=== PATIENT | female | born 1995 | race Caucasian/White ===

== ENCOUNTER 2018-08-17 22:01 | Inpatient (IN) | payer BC ==
[~2018-08-17] VITALS: Ht 167.6 cm; Wt 74.8 kg
[2018-08-17 22:21] VITALS: BP 132/81
--- NOTE | 2018-08-17 22:23 | NUR ---
PT RETURNED TO LOBBY
--- NOTE | 2018-08-17 22:48 | NUR ---
PATIENT AMBULATED TO BED 9
--- NOTE | 2018-08-17 22:59 | NUR ---
PT PRESENTS TO ED WITH C/O GNERLIZED ABDOMINAL PAIN WITH SUDDEN ONSET X 5 HRS. PT DENIES N/V/D AT THIS TIME. PT DENIES PAIN AT PALAPTION. BOWEL SOUNDS ACTIVE TO 4 QUADRANTS. ABD IS SOFT, NO TENDERNESS. PT PLACED INTO BED, THERESA ARMAS. PMH--DENIES
[2018-08-17] MEDS ORDERED: NACL 0.9% 1,000 ML IV SCH (23:22)
[2018-08-17] MEDS ORDERED: MORPHINE SULFATE 4 MG/ML SYR IVP ONE (23:25)
[2018-08-17] MEDS ORDERED: ONDANSETRON 4 MG/2 ML VIAL IVP ONE (23:25)
[2018-08-17] MEDS ORDERED: FAMOTIDINE 20 MG/2 ML VIAL IVP ONE (23:25)
--- NOTE | 2018-08-17 23:33 | NUR ---
PHLEB at bedside for blood draw.
[2018-08-17 23:44] LABS: BASOPHILS % (AUTO) 0.3 % (0.0-2.0); EOSINOPHILS # (AUTO) 0.1 K/uL (0-0.4); EOSINOPHILS % (AUTO) 1.1 % (0.0-4.0); HEMATOCRIT 37.8 % (36-48); HEMOGLOBIN 12.2 g/dL (12.0-16.0); LYMPHOCYTES # (AUTO) 1.8 K/uL (2.5-16.5); LYMPHOCYTES % (AUTO) 15.8 % (20.5-51.1); MEAN CORPUSCULAR HEMOGLOBIN 28 pg (27-31); MEAN CORPUSCULAR HGB CONC 32 g/dL (33-37); MEAN CORPUSCULAR VOLUME 87.5 fL (80-94); MONOCYTES # (AUTO) 0.7 K/uL (0.8-1.0); MONOCYTES % (AUTO) 6.4 % (1.7-9.3); NEUTROPHILS # (AUTO) 8.7 K/uL (1.8-7.7); NEUTROPHILS % (AUTO) 76.4 % (42.2-75.2); PLATELET COUNT (AUTO) 201 K/uL (140-450); RED BLOOD CELL COUNT(AUTO) 4.33 MIL/uL (4.20-5.40); RED CELL DISTRIBUTION WIDTH 13.4 % (11.6-13.7); WHITE BLOOD COUNT (AUTO) 11.4 K/uL (4.8-10.8)
--- NOTE | 2018-08-17 23:56 | NUR ---
Patient taken to CT scan via wheelchair by tech.
[2018-08-17 23:59] LABS: ANION GAP 8.9 (8-16); CARBON DIOXIDE 28.9 mmol/L (21-32); CREATININE 0.6 mg/dL (0.6-1.3); POTASSIUM 3.8 mmol/L (3.5-5.1); TOTAL BILIRUBIN 0.3 mg/dL (0.0-1.0)
[2018-08-18] LABS: ALBUMIN 3.9 g/dL (3.4-5.0)
[2018-08-18 00:02] LABS: APPEARANCE,URINE CLEAR (CLEAR); BILIRUBIN,URINE NEGATIVE (NEGATIVE); BLOOD, URINE NEGATIVE (NEGATIVE); COLOR,URINE YELLOW (YELLOW); LEUKOCYTE ESTERASE ,URINE NEGATIVE (NEGATIVE); NITRITE, URINE NEGATIVE (NEGATIVE); PH,URINE 6.5 (5.0-9.0); UGLUCOSE NEGATIVE (NEGATIVE)
[2018-08-18 00:18] LABS: RBC,URINE 0-5 (RARE) /HPF (0-5); WBC,URINE 0-5 (RARE) /HPF (0-5)
--- NOTE | 2018-08-18 00:59 | NUR ---
Dr. Hernández re-evaluating patient at bedside.
[2018-08-18] MEDS ORDERED: metroNIDAZOLE 500 MG/NS PREMIX 100 ML IV ONE (01:05)
[2018-08-18] MEDS ORDERED: PIPERACILLIN/TAZOBACTAM 3.375 GM in DEXTROSE 5% 50 ML IV ONE (01:05)
[2018-08-18] MEDS ORDERED: PIPERACILLIN/TAZOBACTAM 3.375 GM VIAL IV ONE (01:16)
--- NOTE | 2018-08-18 01:39 | NUR ---
PT AMBULATED TO RESTROOM W OUT ASSIST.
--- NOTE | 2018-08-18 02:06 | NUR ---
Pt transferred to Med/Surg 119B via BED WITH RN JACQUELYN.
[2018-08-18 02:10] VITALS: BP 125/73
--- NOTE | 2018-08-18 02:15 | NUR ---
RECEIVED REPORT FROM BELT LOOP MACHINE OPERATOR JACQUELYN. PT IS A&OX4. RESPIRATIONS ARE EQUAL AND UNLABORED. SKIN IS INTACT. C/C ABD PAIN. PT WITH IV ON R HAND 22G INFUSING FLAGY. VITAL SIGNS ARE WITHIN NORMAL LIMITS EXCEPT SLIGHT TACHYCARDIA. LABS NORMAL EXCEPT WBC ELEVATED. PLAN OF CARE DISCUSSED. WILL FOLLOW UP ANY NEW ORDERS. CALL LIGHT WITHIN REACH.
--- NOTE | 2018-08-18 02:17 | NUR ---
Patient will be admitted to care of . Admited to MED SURG. Will go to room 119-B. Belongings list completed. Report to ARMANI DAY.
[2018-08-18] MEDS ORDERED: MORPHINE SULFATE 4 MG/ML SYR IVP PRN (02:50)
[2018-08-18] MEDS: LACTATED RINGERS 1,000 ML IV SCH ×2 (03:11→17:52)
--- NOTE | 2018-08-18 03:11 | NUR ---
BAG OF IVF NOW INFUSING PER ORDERS. NO S/S OF DISTRESS. CALL LIGHT WITHIN REACH.
[2018-08-18 03:40] VITALS: BP 106/61
--- NOTE | 2018-08-18 05:07 | NUR ---
PT SLEEPING COMFORTABLY IN BED. RESPIRATIONS ARE EQUAL AND UNLABORED. CALL LIGHT WITHIN REACH.
--- NOTE | 2018-08-18 07:25 | NUR ---
RECEIVED REPORT FROM GUEST ROOM ATTENDANT NURSE. PT IS A&OX4. RESPIRATIONS ARE EQUAL AND UNLABORED. SKIN IS INTACT. C/C ABD PAIN. POSSIBLE APPENDECTOMY TODAY. PT WITH IV ON R HAND 22G INFUSING LR AT 80ML/HR. VITAL SIGNS ARE WITHIN NORMAL LIMITS. LABS NORMAL EXCEPT WBC ELEVATED. PLAN OF CARE DISCUSSED. WILL FOLLOW UP ANY NEW ORDERS. CALL LIGHT WITHIN REACH. BED IN LOW POSITION.
--- NOTE | 2018-08-18 07:27 | NUR ---
GAVE BEDSIDE REPORT. PT IS IN STABLE CONDITION.
[2018-08-18 08:00] VITALS: BP 106/59
[2018-08-18] MEDS: PIPER/TAZO 3.375GM/D5W PREMIX 50 ML IV SCH ×3 (12:13→23:57)
--- NOTE | 2018-08-18 12:42 | NUR ---
PT TAKEN TO OR FOR APPENDECTOMY. PT IN STABLE CONDITION AT THIS TIME.
[2018-08-18] MEDS ORDERED: BUPIVACAINE-MPF/EPI 0.25% 30 ML VIAL INJ ONE (12:43)
[2018-08-18] MEDS ORDERED: HYDROmorphone PFS 2 MG/ML SYR ONE ×2 (12:46→14:06)
[2018-08-18] MEDS ORDERED: fentaNYL 0.05 MG/ML VIAL ONE (12:46)
[2018-08-18] MEDS ORDERED: DESFLURANE 240 ML BTL INH ONE (13:02)
[2018-08-18] MEDS ORDERED: SUCCINYLCHOLINE CHLORIDE 200 MG/10 ML VIAL IVP ONE (13:02)
[2018-08-18] MEDS ORDERED: NEOSTIGMINE 1:1000 10 MG/10 ML VIAL ONE (13:02)
[2018-08-18] MEDS ORDERED: ROCURONIUM 50 MG/5 ML VIAL IV ONE (13:02)
[2018-08-18] MEDS ORDERED: GLYCOPYRROLATE 0.2 MG/ML VIAL ONE (13:02)
[2018-08-18] MEDS ORDERED: PROPOFOL 200 MG/20 ML VIAL IV ONE (13:02)
[2018-08-18] MEDS ORDERED: ONDANSETRON 4 MG/2 ML VIAL ONE (13:02)
[2018-08-18] MEDS ORDERED: KETOROLAC 30 MG/ML VIAL ONE (13:02)
[2018-08-18] MEDS ORDERED: DEXAMETHASONE 10 MG/ML VIAL ONE (13:02)
[2018-08-18] MEDS ORDERED: ONDANSETRON 4 MG/2 ML VIAL IVP PRN ×2 (13:20→23:35)
--- NOTE | 2018-08-18 13:44 | NUR ---
PATIENT HAS BEEN SCREENED AND CATEGORIZED LOW NUTRITION RISK. PATIENT WILL BE SEEN WITHIN 7 DAYS OF ADMISSION. 08/25/18 SILVA GARDUNO MBA, RD
[2018-08-18] MEDS: HYDROmorphone 1 MG/ML AMP IVP PRN ×4 (13:55→14:20)
--- NOTE | 2018-08-18 14:37 | NUR ---
PT RETURNED FROM SURGERY. 3 SMALL INCISIONS MADE IN ABD. ALL BANDAIDS DRY AND INTACT. VITAL SIGNS STABLE. NO SIGNS OF DISTRESS OR SOB. WILL CONTINUE TO ROUND FREQUENTLY. CALL LIGHT WITHIN REACH, BED IN LOW POSITION.
--- NOTE | 2018-08-18 16:21 | NUR ---
PT RESTING IN ROOM WITH FAMILY AT SIDE. PT DENIES PAIN. ALL NEEDS MET AT THIS TIME. CALL LIGHT WITHIN REACH, BED IN LOW POSITION.
--- NOTE | 2018-08-18 19:25 | NUR ---
RECEIVED REPORT FROM ROSINA LOMELI DAYSHIFT NURSE AT BEDSIDE FOR CONTINUITY OF CARE, PT IN STABLE CONDITION.
--- NOTE | 2018-08-18 19:25 | NUR ---
PT ENDORSED TO [employer] FOOTB[employer] COACH FOR CONTINUITY OF CARE. PT IN STABLE CONDITION.
--- NOTE | 2018-08-18 19:25 | NUR ---
RECEIVED ENDORSEMENT FROM ROSINA JEREZ FOR CONTINUITY OF CARE, PT IN STABLE CONDITION.
[2018-08-18 20:00] VITALS: BP 105/59
--- NOTE | 2018-08-18 20:00 | NUR ---
PT SITTING UP IN BED AOX4 . SHE HAS 22G IV SITE ON R HAND RUNNING LACTATED RINGERS ORDERED. PT HAS 3 INTACT BAND-AIDS ON ABD POST APPENDECTOMY. PT HAS FULL LIQUID DIET AND IS CONSUMING FOOD AT BEDSIDE. PT C/O OF SOME PAIN BUT WANTS TO WAIT FOR PAIN MEDICATION AFTER SHE EATS. WILL CONTINUE TO MONITOR PT FOR PAIN.
--- NOTE | 2018-08-18 21:37 | NUR ---
PT ATE A JELLO JUICE AND 1/2 A SOUP. SHE IS SLEEPING PEACEFULLY, NO S/S OF PAIN OR DISCOMFORT NOTED. WILL CONTINUE TO MONITOR PT FOR PAIN.
[2018-08-18] MEDS ORDERED: HYDROcodone/APAP 5/325 MG 1 TAB TAB PO PRN (23:35)
--- NOTE | 2018-08-18 23:39 | NUR ---
PT C/O OF NAUSEA AND MILD PAIN. ZOFRAN ORDER HAS . AND PT REFUSED CURRENT PAIN MEDICATIONS SAYING THAT IT IS TOO STRONG. DR. CAN A SURGEON WAS CALLED AND GAVE 2 NEW VERBAL ORDERS OVER THE PHONE FOR PT, ZOFRAN 4MG IVP Q 8HRS PRN WAS ORDERED WELL A NORCO 5/*325MG FOR MODERATE PAIN Q6HRS PRN. SPOKE WITH PHARMACY REGARDING VERIFICATION OF ORDERS AND THAT PT IS IN PAIN AND FEELING NAUSEA. WILL ADMINISTER ORDERED MEDICATION.
--- NOTE | 2018-08-19 00:03 | NUR ---
PT TOOK ZOFRAN IVP FOR NAUSEA , BUT SHE DECLINED THE NORCO FOR PAIN, PT SAID THAT LAST TIME SHE TOOK NORCO FOR A TOOTH ACHE IT GAVE HER A STOMACH ACHE. PT REMINDED TO CALL PRIMARY NURSE IF SHE DECIDES THAT SHE WANTS TO TAKE MEDICATION FOR PAIN RELIEF. PT VERBALIZED UNDERSTANDING.
--- NOTE | 2018-08-19 00:06 | NUR ---
PUSHPA DIAS AND IS RUNNING ORDERED AT 100MLS/HR. V/S FOLLOWS T 97.6 P 72 R 18 B/P 105/53. BED LOW SIDE RAILS UP AND CALL GLASGOW IN REACH.
--- NOTE | 2018-08-19 03:00 | NUR ---
ASSISTED PT TO TOILET, SHE SAID THAT HER NAUSEA IS GONE AND THE PAIN IS STILL THERE BUT TOLERABLE.
[2018-08-19 04:05] VITALS: BP 105/53
[2018-08-19] MEDS: LACTATED RINGERS 1,000 ML IV SCH (05:47)
[2018-08-19] MEDS: PIPER/TAZO 3.375GM/D5W PREMIX 50 ML IV SCH ×2 (05:49→11:24)
[2018-08-19 07:05] LABS: BASOPHILS % (AUTO) 0.1 % (0.0-2.0); EOSINOPHILS % (AUTO) 0.1 % (0.0-4.0); HEMATOCRIT 35.3 % (36-48); HEMOGLOBIN 11.6 g/dL (12.0-16.0); LYMPHOCYTES # (AUTO) 1.2 K/uL (2.5-16.5); LYMPHOCYTES % (AUTO) 12.9 % (20.5-51.1); MEAN CORPUSCULAR HEMOGLOBIN 29 pg (27-31); MEAN CORPUSCULAR HGB CONC 33 g/dL (33-37); MEAN CORPUSCULAR VOLUME 87.1 fL (80-94); MONOCYTES # (AUTO) 0.8 K/uL (0.8-1.0); MONOCYTES % (AUTO) 8.3 % (1.7-9.3); NEUTROPHILS # (AUTO) 7.3 K/uL (1.8-7.7); NEUTROPHILS % (AUTO) 78.6 % (42.2-75.2); PLATELET COUNT (AUTO) 193 K/uL (140-450); RED BLOOD CELL COUNT(AUTO) 4.05 MIL/uL (4.20-5.40); RED CELL DISTRIBUTION WIDTH 13.6 % (11.6-13.7); WHITE BLOOD COUNT (AUTO) 9.3 K/uL (4.8-10.8)
--- NOTE | 2018-08-19 07:25 | NUR ---
REPORT GIVEN TO ALTHEA LOMELI DAYSHIFT NURSE AT BEDSIDE FOR CONTINUITY OF CARE, PT IN STABLE CONDITION.
--- NOTE | 2018-08-19 07:30 | NUR ---
RECEIVED PT FROM FELT CHECKER NURSE, PT IS AWAKE AND LYING ON THE BED WITH SIDE RAILS UP AND CALL LIGHT WITHIN REACH. PT HAS AN IV LINE ON THE RT HAND G. 22, INTACT WITH LR INFUSING AT 80ML/HR. PT DENIES PAIN AND NO SOB NOTED. 3 SURGICAL INCISIONS NOTED, STEPHEN INTACT .NO SIGN OF DISTRESS NOTED AND WILL CONTINUE TO MONITOR PT.
[2018-08-19 08:00] VITALS: BP 102/54
--- NOTE | 2018-08-19 08:00 | NUR ---
PT IS AWAKE AND VITAL SIGNS TAKEN AND IS WITHIN NORMAL LIMIT. PT DENIES PAIN AND NO SIGN OF DISTRESS NOTED. WILL CONTINUE TO MONITOR PT.
[2018-08-19] MEDS ORDERED: ACET-9525 PO (08:40)
--- NOTE | 2018-08-19 11:29 | NUR ---
PT IS AWAKE AND FAMILY ON THE BEDSIDE, ZOSYN WAS GIVEN VIA PIGGYBACK AND PT TOLERATED IT. WILL MONITOR PT.
--- NOTE | 2018-08-19 12:40 | NUR ---
SURGICAL WOUND ASSESSMENT DONE TO PT AND REINFORCED WITH DRESSING, STAPLE INTACT AND NO DRAINAGE NOTED. PICTURE TAKEN AND ATTACHED TO CHART.
--- NOTE | 2018-08-19 13:45 | NUR ---
DISCHARGED PT VIA WHEELCHAIR WITH FAMILY, TEACHINGS AND INSTRUCTIONS GIVEN TO PT AND PT VERBALIZED UNDERSTANDING. IV LINE AND ARM BANDS REMOVED. PT IS STABLE AT THIS TIME.
== END 2018-08-19 13:45 | disposition home or self-care (01) | DRG 343 ==
LOC: MED 22:01 → MTU 08-18 01:50
PROVIDERS: ADMIT Hospitalist; ATTEND Hospitalist
PROC: 0DTJ4ZZ Resection of Appendix, Percutaneous Endoscopic Approach (ICD-10-PCS; principal; 2018-08-18 12:30)
DX: K35.80 Unspecified acute appendicitis (principal); R00.0 Tachycardia, unspecified
CPT/HCPCS: 36415; 80053; 81001; 82374; 83690; 84703; 85025; 87081; 96361; 96365; 96375; 99285; J0330; J1100; J1170; J1885; J2270; J2405; J2543; J2704; J2710; J3010; J3490; J7030; J7120